=== PATIENT | female | born 1965 | race Caucasian/White ===

== ENCOUNTER 2020-04-07 20:19 | Emergency (ER) | payer MEDICAID ==
[~2020-04-07] VITALS: Ht 172.7 cm; Wt 79.4 kg
[2020-04-07 20:41] VITALS: BP 129/81
[2020-04-07] MEDS ORDERED: NEOMYCIN-BACITRACIN-POLYM 15GM TOP OINT TOP ONE (23:30)
[2020-04-07] MEDS ORDERED: TETANUS-DIPTH-ACEL PERTUSSIS 0.5ML SYR Tdap IM ONE (23:30)
[2020-04-07] MEDS ORDERED: BACITRACIN TOP OINT 1 UD PKG TOP ONE (23:45)
== END 2020-04-08 00:09 | disposition home or self-care (01) ==
LOC: ER 20:21
DX: S61.552A Open bite of left wrist, initial encounter (principal); S61.206A Unspecified open wound of right little finger without damage to nail, initial encounter; W54.0XXA Bitten by dog, initial encounter; Y93.89 Activity, other specified; Y92.89 Other specified places as the place of occurrence of the external cause; Y99.8 Other external cause status
CPT/HCPCS: 73110; 90471; 90715